=== PATIENT | female | born 1960 | race African-American/Black ===

== ENCOUNTER 2019-11-14 22:30 | Emergency (ER) | payer BC ==
[~2019-11-14] VITALS: Ht 170.2 cm; Wt 82.0 kg
[~2019-11-14 22:30] MED LIST: AMLO10TA80 MT
[2019-11-14] MEDS ORDERED: ACETAMINOPHEN 325MG TABLET PO STA (22:58)
[2019-11-14 23:24] LABS: BASOPHILS % 0.4 % (0.0-2.0); EOSINOPHILS % 1.1 % (0.0-5.0); HEMATOCRIT. 41.4 % (36.0-48.0); HEMOGLOBIN. 13.6 g/dL (12.0-16.0); LYMPHOCYTES % 20.9 % (20.0-50.0); MEAN CORPUSCULAR HEMOGLOBIN 26.8 pg (28.0-32.0); MEAN CORPUSCULAR VOLUME 81.7 fL (81.0-99.0); MEAN PLATELET VOLUME 8.8 fl (7.4-10.4); MONOCYTES % 5.5 % (2.0-8.0); NEUTROPHILS % 72.1 % (40.0-76.0); PLATELET 231 x1000/uL (130-400); RED BLOOD CELL COUNT 5.07 mill/uL (4.2-5.4); RED CELL DISTRIBUTION WIDTH 16.2 % (11.6-14.6)
[2019-11-15 00:53] VITALS: BP 163/96
== END 2019-11-15 00:54 | disposition home or self-care (01) ==
LOC: ER 22:30
DX: R04.0 Epistaxis (principal); R51 Headache; I10 Essential (primary) hypertension; E11.9 Type 2 diabetes mellitus without complications; E78.00 Pure hypercholesterolemia, unspecified; Z88.6 Allergy status to analgesic agent; Z88.8 Allergy status to other drugs, medicaments and biological substances
CPT/HCPCS: 36415; 85025; 99283